=== PATIENT | male | born 1965 | race African-American/Black ===

== ENCOUNTER 2020-06-09 18:22 | Inpatient (IN) | payer MEDICAID ==
[2020-06-09] VITALS (16 sets, daily range): BP systolic 160–212; BP diastolic 91–117; Ht 175.3 cm; Wt 106.9 kg
[~2020-06-09] VITALS: Ht 175.3 cm; Wt 106.9 kg
--- NOTE | ~2020-06-09 | EC ---
PATIENT:ONEIL PERERA JR DATE OF SERVICE: 06/09/20 SEX: M MEDICAL RECORD: [id number] DATE OF : [birth year] LOCATION:D.M2 D.211 AGE OF PATIENT: 55 ADMISSION DATE: 06/09/20 REFERRING PHYSICIAN: INTERPRETING PHYSICIAN: JANIS ROACH MD ECHOCARDIOGRAM REPORT ECHO CHARGES 4 ECHO COMPLETE Date: 06/11/20 CLINICAL DIAGNOSIS: HTN ECHOCARDIOGRAPHIC MEASUREMENTS (adult normal given) AC root (d.<3.7cm) 3.5 cm LV Septum d (<1.2 cm> 1.5 cm Valve Excursion 1.9 cm LV Septum (systole) 1.9 cm Left Atria (s.<4.0cm> 3.6 cm LVPW d(<1.2cm) 0.8 cm RV (d.<2.3cm) 2.7 cm LVPW (sytole) 1.6 cm LV diastole(<5.6CM) 6.3 cm MV E-F(>70mm/sec) cm LV systole 4.9 cm LVOT Diameter 2.1 cm MV exc.(>10mm) cm Est.ejection fraction (50-75%) % DOPPLER: LVIT cm/sec A 18.2 cm/sec E 71 cm/sec LA cm/sec RVSP 18.2 mmHg LVOT 112 cm/sec AOP1/2T m/s Asc. Ao 119 cm/sec RVOT 72 cm/sec RA cm/sec PA 76 cm/sec AV Gradient Peak 5.7 mmHg AV Mean 3.2 mmHg AV Area 3.7 cm MV Gradient Peak 4.0 mmHg MV Mean 2.3 mmHg MV Area cm COMMENTS: Utility Repairer: Danny [facility] Rn Charge: 2 Dr. Glover TAPE# PACS Pericardial Effusion Y DATE OF SERVICE: Adequate 2D, color flow imaging, spectral Doppler and M-mode. Mild LVH. LV internal dimension is normal. Wall motion is normal. EF is greater than or equal to 55%. Aortic valve is tricuspid. No evidence of stenosis by Doppler interrogation. Left atrium normal at 3.6. Mitral valve shows no prolapse. Trace MR. Right-sided chambers are grossly normal. Mild TR. ECHOCARDIOGRAM REPORT [id number] ONEIL PERERA JR TRANSINT:[id number] Voice Confirmation ID: [id number] DOCUMENT ID: [id number] JANIS ROACH MD CC: [id number] DICTATION DATE: 06/12/20 1426 ARBORIST REPRESENTATIVE: 06/13/20 0040 DIS IN 06/11/20 [facility] [address] [id number]
[2020-06-09] MEDS ORDERED: LISINOPRIL10 MG PO (18:55)
[2020-06-09] MEDS ORDERED: TOPROL XL100 MG PO (18:58)
[2020-06-09 19:22] LABS: BASOPHILS 0.2 % (0-2); EOSINOPHILS 2.6 % (0-7); HEMATOCRIT 39.8 % (42.0-54.0); HEMOGLOBIN 13.9 g/dL (13.5-17.5); MCH 31.5 pg (26.0-34.0); MCHC 34.9 g/dL (31.0-37.0); MCV 90.2 fL (80.0-100.0); MEAN PLATELET VOLUME 11.1 fL (7.4-10.4); NEUTROPHILS 41.2 % (40-80); PLATELET COUNT 179 10x3/uL (130-400); RBC 4.41 10x6/uL (4.20-6.10); RDW 13.5 % (11.5-14.5); WBC 5.5 10x3/uL (4.8-10.8)
[2020-06-09 19:32] LABS: APTT 34.8 SECONDS (22.8-39.4); INR 0.92 (0.85-1.17); PROTIME 12.3 SECONDS (11.6-15.0)
[2020-06-09 19:59] LABS: CALC OSMOLALITY 283 mosm/kg (275-300); CALCIUM 8.7 mg/dL (8.5-10.1); CARBON DIOXIDE 25.5 mmol/L (21.0-32.0); CHLORIDE - SERUM 106 mmol/L (98-107); CREATININE - SERUM 1.1 mg/dL (0.6-1.3); GLUCOSE 110 mg/dL (74-106); POTASSIUM - SERUM 3.6 mmol/L (3.5-5.1); SODIUM 141 mmol/L (136-145); UREA NITROGEN 19 mg/dL (7-18); eGFR NON AFRICAN AMERICAN 73 mL/min (90-120)
[2020-06-09 20:12] LABS: ALKALINE PHOSPHATASE 76 U/L (30-120); ALT (SGPT) 46 U/L (10-68); BILIRUBIN - TOTAL 0.72 mg/dL (0.2-1.3); CKMB 1.6 U/L (0.0-3.6); CREATINE KINASE 120 UL (21-232); MAGNESIUM - SERUM 1.8 mg/dL (1.8-2.4); PROTEIN - SERUM 7.9 g/dL (6.4-8.2)
[2020-06-09 20:16] LABS: TROPONIN-I < 0.017 ng/mL (0.000-0.060)
--- NOTE | 2020-06-09 23:25 | NUR ---
PATIENT RECEIVED FROM ER VIA STRETCHER, PATIENT STOOD AND WALKED FROM DOORWAY INTO BATHROOM, AND BACK TO BED. PATIENT TOLERATED WELL WITH STEADY GAIT NOTED. CALL LIGHT WITHIN REACH, BED IN LOW POSITION, AND WILL CONTINUE TO MONITOR.
--- NOTE | 2020-06-09 23:35 | NUR ---
MORGAN SIDHU APN AT BEDSIDE WITH PATIENT.
[2020-06-10] VITALS (54 sets, daily range): BP systolic 118–160; BP diastolic 68–94
[2020-06-10 04:19] LABS: BASOPHILS 0.2 % (0-2); HEMATOCRIT 38.6 % (42.0-54.0); HEMOGLOBIN 13.2 g/dL (13.5-17.5); IMMATURE GRANULOCYTES 0.2 % (0-5); MCH 30.6 pg (26.0-34.0); MCHC 34.2 g/dL (31.0-37.0); MCV 89.6 fL (80.0-100.0); MEAN PLATELET VOLUME 11.1 fL (7.4-10.4); MONOCYTES 15.8 % (2-11); NEUTROPHILS 33.8 % (40-80); PLATELET COUNT 178 10x3/uL (130-400); RBC 4.31 10x6/uL (4.20-6.10); RDW 13.5 % (11.5-14.5); WBC 4.6 10x3/uL (4.8-10.8)
[2020-06-10 04:32] LABS: APTT 34.7 SECONDS (22.8-39.4); INR 0.97 (0.85-1.17); PROTIME 12.9 SECONDS (11.6-15.0)
[2020-06-10 04:44] LABS: ALBUMIN 3.6 g/dL (3.4-5.0); ALKALINE PHOSPHATASE 60 U/L (30-120); ALT (SGPT) 39 U/L (10-68); BILIRUBIN - TOTAL 0.79 mg/dL (0.2-1.3); CALC OSMOLALITY 287 mosm/kg (275-300); CALCIUM 8.8 mg/dL (8.5-10.1); CARBON DIOXIDE 25.1 mmol/L (21.0-32.0); CHLORIDE - SERUM 108 mmol/L (98-107); CHOL - HDL RATIO 2.1 ratio (2.3-4.9); CHOLESTEROL, TOTAL 136 mg/dL (0-200); CKMB 1.4 U/L (0.0-3.6); CREATINE KINASE 88 UL (21-232); GLUCOSE 101 mg/dL (74-106); HDL CHOLESTEROL 64 mg/dL (32-96); LDL CHOLESTEROL 64 mg/dL (0-100); MAGNESIUM - SERUM 1.8 mg/dL (1.8-2.4); POTASSIUM - SERUM 3.5 mmol/L (3.5-5.1); PRO BNP 626 pg/mL (0-125); PROTEIN - SERUM 7.3 g/dL (6.4-8.2); SODIUM 143 mmol/L (136-145); T4 THYROXIN - FREE 1.01 ng/dL (0.76-1.46); THYROID STIMULATING HORMONE 1.21 uIU/mL (0.36-3.74); TRIGLYCERIDE 41 mg/dL (30-200); UREA NITROGEN 20 mg/dL (7-18); eGFR NON AFRICAN AMERICAN 82 mL/min (90-120)
[2020-06-10 04:45] LABS: TROPONIN-I < 0.017 ng/mL (0.000-0.060)
--- NOTE | 2020-06-10 07:30 | NUR ---
AWAKE AND ALERT SKIN WARM AND DRY. NO DISTRESS. MONITOR SR. IV LEFT HAND INFUSING WITH CARDEAN AT 10 MG/HOUR. PATIENT STATES THEY TOLD HIM HE GO HOME THIS MORNING. INFORMED HE WOULD HAVE TO TALK WITH HIS PHYSICAN ABOUT THAT. AMBULATED TO BATHROOM, INDEPENDENTLY. GOOD GAIT.
--- NOTE | 2020-06-10 07:36 | NUR ---
CARDIOLOGY NOTIFIED OF CONSULT
--- NOTE | 2020-06-10 08:00 | NUR ---
BREAKFAST SERVED. ATE WELL
--- NOTE | 2020-06-10 15:00 | NUR ---
CARDEAN WEANED OFF. PATIENT UP AND DOWN TO BATHROOM.
--- NOTE | 2020-06-10 18:00 | NUR ---
REPORT CALLED TO MAUDE. TRANSFERED PER WHEEL CHAIR TO ROOM [id number]
--- NOTE | 2020-06-10 18:41 | NUR ---
TRANSFER FROM CVICU BY W/C. CALL LIGHT IN REACH. WILL CONT. PLAN OF CARE.
[2020-06-11 04:00] VITALS: BP 168/100
[2020-06-11 06:51] LABS: BASOPHILS 0.2 % (0-2); EOSINOPHILS 3.1 % (0-7); HEMATOCRIT 38.7 % (42.0-54.0); HEMOGLOBIN 13.2 g/dL (13.5-17.5); IMMATURE GRANULOCYTES 0.2 % (0-5); MCH 30.7 pg (26.0-34.0); MCHC 34.1 g/dL (31.0-37.0); MEAN PLATELET VOLUME 10.8 fL (7.4-10.4); MONOCYTES 13.5 % (2-11); PLATELET COUNT 165 10x3/uL (130-400); RDW 13.7 % (11.5-14.5); WBC 4.6 10x3/uL (4.8-10.8)
[2020-06-11 07:09] LABS: CALC OSMOLALITY 277 mosm/kg (275-300); CALCIUM 9.1 mg/dL (8.5-10.1); CARBON DIOXIDE 25.2 mmol/L (21.0-32.0); CHLORIDE - SERUM 104 mmol/L (98-107); CREATININE - SERUM 0.9 mg/dL (0.6-1.3); GLUCOSE 106 mg/dL (74-106); MAGNESIUM - SERUM 1.7 mg/dL (1.8-2.4); PHOSPHOROUS 3.4 mg/dL (2.5-4.9); POTASSIUM - SERUM 3.8 mmol/L (3.5-5.1); SODIUM 139 mmol/L (136-145); UREA NITROGEN 12 mg/dL (7-18); eGFR NON AFRICAN AMERICAN > 90 mL/min (90-120)
[2020-06-11 08:00] VITALS: BP 169/105
[2020-06-11 10:36] LABS: BILIRUBIN NEGATIVE (NEGATIVE); GLUCOSE NEGATIVE (NEGATIVE); KETONE NEGATIVE (NEGATIVE); NITRITE NEGATIVE (NEGATIVE); UROBILINOGEN NORMAL (NORMAL)
[2020-06-11] MEDS ORDERED: NORVASC10 MG PO (10:53)
[2020-06-11] MEDS ORDERED: NORMODYNE / TR200 MG PO (10:53)
--- NOTE | 2020-06-11 11:57 | NUR ---
UPON DISCHARGE, PATIENT STATES THAT HE HAS WRITTEN SCRIPT FOR BLOOD PRESSURE MEDICATIONS.
--- NOTE | 2020-06-11 12:32 | MORECARE ---
CASE MANAGEMENT DISCHARGE SUMMARY PATIENT: ONEIL PERERA JR UNIT: [id number] ADM DATE: 06/09/20 AGE: 55 : 61 SEX: M ROOM/BED: D.9887 AUTHOR: GAUDENCIO,DOC PHYSICIAN: REFERRING PHYSICIAN: DIEGO CAMPA MD DATE OF SERVICE: 06/11/20 Discharge Plan Patient Name: ONEIL PERERA Facility: [facility]:[place] : 1965 Planned Disposition: Home Anticipated Discharge Date: 06/11/20 Discharge Date: Expected LOS: 2 Initial Reviewer: [email or web address] Initial Review Date: 06/09/2020 Generated: 06/11/20 1:31 pm DCP- Discharge Planning Updated by [email or web address]: Jenniffer Means on 06/11/20 11:[address] CM met with patient to discuss initial discharge planning. Patient is in agreement to proceed with the assessment. Patient reports that he lives at home independently,alone. Patient is alert/oriented. Stairs/steps: 2. [facility]. Patient states he had not picked up his BP medication, the first time it was prescribed, due to working and the second one prescribed wasn't working. States that he is able to afford his medications. HHS: [employer]. DME: No. Emergency contact: Kelsey Crowder (sister) [phone]. Patient is Independent with all ADL's, medication management PLATING TECHNICIAN. CM discussed the availability of HH, Rehab, SNF, OP Therapy, DME services. Patient denies the need for additional services at this time and feels safe returning to previous environment. Patient denies hospitalization within the past 30 days. Patient denies the use of community resources PLATING TECHNICIAN. Transportation at time of discharge: Patient will drive himself home. Voices no other needs. DCPIA - Discharge Planning Initial Assessment Updated by [email or web address]: Jenniffer Means on 06/11/20 12:30 pm * Is the patient Alert and Oriented? Yes * How many steps to enter\exit or inside your home? * [facility]CP [facility] * [facility] * Preadmission Environment Home Alone * ADLs Independent * Equipment None * Other Equipment NA * List name and contact numbers for known caregivers / representatives who currently or will assist patient after discharge: Kelsey Crowder (sister) [phone] * Verbal permission to speak to the caregivers and representatives has been obtained from the patient. N/A * Community resources currently utilized None * Please name any agencies selected above. NA * Additional services required to return to the preadmission environment? No * Can the patient safely return to the preadmission environment? Yes * Has this patient been hospitalized within the prior 30 days at any hospital? No Patient Name: ONEIL PERERA Page [phone] at 1232 All edits/amendments must be made on the electronic document DICTATION DATE: 06/11/20 1231 FLOOR REPRESENTATIVE: SARY 06/11/20 1231 RPT#: [id number] DC DATE: STATUS: ADM IN [facility] [address] [place] [address] END OF REPORT
--- NOTE | 2020-06-11 12:39 | NUR ---
RX CALLED TO PHARMACY. IV AND TELEMETRY DCD. DC PLANS GIVEN. UNDERSTANDING VOICED. ESCORTED TO CAR BY W/C.
== END 2020-06-11 12:40 | disposition home or self-care (01) | DRG 305 ==
LOC: D.ER 18:22 → D.CVICU 21:31 → D.M2 06-10 18:36
PROVIDERS: Family Medicine; ADMIT Emergency Medicine; ATTEND Emergency Medicine
DX: I16.0 Hypertensive urgency (principal); Z72.0 Tobacco use